=== PATIENT | female | born 1970 | race Two or more races ===

== ENCOUNTER → 2021-08-23 09:00 | Outpatient (CLI) | payer OTHER | END | disposition home or self-care (01) | LOC: PPH VACUNA 09:00 | PROVIDERS: ATTEND Emergency Medicine Pediatric Emergency Medicine | DX: Z23 Encounter for immunization (principal) ==

== ENCOUNTER 2021-10-23 11:56 | Outpatient (CLI) | payer OTHER | END 2021-10-23 12:00 | disposition home or self-care (01) | LOC: LAB 11:56 | PROVIDERS: ATTEND Emergency Medicine Pediatric Emergency Medicine | DX: Z20.828 Contact with and (suspected) exposure to other viral communicable diseases (principal) ==

== ENCOUNTER 2021-10-24 09:53 | Outpatient (CLI) | payer OTHER | END 2021-10-24 15:00 | disposition home or self-care (01) | LOC: LAB 09:53 | PROVIDERS: ATTEND General Practice | DX: J11.1 Influenza due to unidentified influenza virus with other respiratory manifestations (principal); Z20.828 Contact with and (suspected) exposure to other viral communicable diseases ==

== ENCOUNTER 2021-12-05 08:00 | Outpatient (CLI) | payer OTHER | END 2021-12-05 08:30 | disposition home or self-care (01) | LOC: PPH VACUNA 08:00 | PROVIDERS: ATTEND Emergency Medicine Pediatric Emergency Medicine | DX: Z23 Encounter for immunization (principal) ==

== ENCOUNTER 2021-12-05 09:26 | Outpatient (CLI) | payer OTHER | END 2021-12-05 09:29 | disposition home or self-care (01) | LOC: LAB 09:26 | PROVIDERS: ATTEND General Practice | DX: I10 Essential (primary) hypertension (principal); Z00.00 Encounter for general adult medical examination without abnormal findings; E78.49 Other hyperlipidemia ==

== ENCOUNTER 2022-03-19 11:05 | Outpatient (CLI) | payer OTHER | END 2022-03-19 11:06 | disposition home or self-care (01) | LOC: LAB 11:05 | DX: U07.1 COVID-19 (principal) ==

== ENCOUNTER 2022-04-28 16:23 | Outpatient (CLI) | payer OTHER | END 2022-04-28 23:00 | disposition home or self-care (01) | LOC: LAB 16:23 | PROVIDERS: ATTEND Emergency Medicine Pediatric Emergency Medicine | DX: U07.1 COVID-19 (principal) ==

== ENCOUNTER 2022-05-05 09:46 | Outpatient (CLI) | payer OTHER | END 2022-05-05 14:15 | disposition home or self-care (01) | LOC: LAB 09:46 | PROVIDERS: ATTEND Emergency Medicine Pediatric Emergency Medicine | DX: U07.1 COVID-19 (principal) ==

== ENCOUNTER 2023-03-17 10:57 | Outpatient (CLI) | payer OTHER | END 2023-03-17 10:58 | disposition home or self-care (01) | LOC: LAB 10:57 | PROVIDERS: ATTEND Obstetrics & Gynecology | DX: I10 Essential (primary) hypertension (principal); E03.8 Other specified hypothyroidism; Z12.11 Encounter for screening for malignant neoplasm of colon; N30.00 Acute cystitis without hematuria; E83.51 Hypocalcemia; N95.8 Other specified menopausal and perimenopausal disorders; E78.49 Other hyperlipidemia ==

== ENCOUNTER 2023-05-15 16:49 | Outpatient (CLI) | payer OTHER | END 2023-05-15 16:53 | disposition home or self-care (01) | LOC: LAB 16:49 | DX: Z20.822 Contact with and (suspected) exposure to COVID-19 (principal) ==

== ENCOUNTER 2023-05-23 08:17 | Outpatient (CLI) | payer OTHER | END 2023-05-23 08:18 | disposition home or self-care (01) | LOC: LAB 08:17 | PROVIDERS: ATTEND General Practice | DX: E78.5 Hyperlipidemia, unspecified (principal); E55.9 Vitamin D deficiency, unspecified; R10.9 Unspecified abdominal pain; N39.0 Urinary tract infection, site not specified; R42 Dizziness and giddiness; Z00.00 Encounter for general adult medical examination without abnormal findings ==

== ENCOUNTER 2024-02-17 07:25 | Outpatient (CLI) | payer OTHER | END 2024-02-17 07:35 | disposition home or self-care (01) | LOC: PPH VACUNA 07:25 | PROVIDERS: ATTEND Emergency Medicine Pediatric Emergency Medicine | DX: Z23 Encounter for immunization (principal) | CPT/HCPCS: 90653; G0008 ==

== ENCOUNTER 2024-06-09 06:48 | Outpatient (CLI) | payer OTHER ==
[2024-06-09 07:38] LABS: HEMATOCRIT 38.2 % (36.0-45.00); HEMOGLOBIN 13.1 g/dL (12.0-15.00); MEAN CELL VOLUME 88.5 fL (80.00-100.00); MEAN CORPUSCULAR HEMOGLOBIN 30.4 pg (27.00-32.0); MEAN CORPUSCULAR HGB CONC 34.3 g/dl (32.0-36.0); PLATELET COUNT 324 K/uL (150-450); RED BLOOD COUNT 4.31 M/uL (4.00-6.00); RED CELL DISTRIBUTION WIDTH 12.8 % (11.5-14.5)
[2024-06-09 08:23] LABS: INR 1.03; PROTHROMBIN TIME 10.8 SECONDS (9.0-11.5)
[2024-06-09 08:26] LABS: BILIRUBIN TOTAL 0.66 mg/dL (0.3-1.2); CALCIUM 9.3 mg/dL (8.5-10.1); CHOL HDL RATIO 2.9 (0-5.0); CREATININE SERUM 0.8 mg/dL (0.55-1.02); GFR 74.75; GLOBULINA 3.6 G/DL (2.4-3.5); POTASSIUM 3.89 mEq/L (3.5-5.1); TOTAL PROTEIN 7.6 gm/dL (6.4-8.2); TSH 1.54 uIU/mL (0.358-3.74)
== END 2024-06-09 16:10 | disposition home or self-care (01) ==
LOC: LAB 06:48
PROVIDERS: ATTEND Internal Medicine Gastroenterology
DX: K21.9 Gastro-esophageal reflux disease without esophagitis (principal); E55.9 Vitamin D deficiency, unspecified

== ENCOUNTER 2024-10-10 15:13 | Outpatient (CLI) | payer OTHER | END 2024-10-10 15:45 | disposition home or self-care (01) | LOC: LAB 15:13 | DX: A64 Unspecified sexually transmitted disease (principal) ==